=== PATIENT | female | born 1970 | race Caucasian/White ===

== ENCOUNTER 2017-07-16 07:14 | Day surgery (SDC) | payer OTHER ==
[~2017-07-16 07:14] MED LIST: Buffered Lidocaine 0.9% SYRIN* 5 ML/SYR SYRINGE INTRADERM ONE; Bupivacaine 0.5% SDV PF* 30 ML VIAL ONE; Famotidine IV* 10 MG/ML 2 ML (20 mg) IV ONE; Lidocaine 2% PF* 10 ML AMP ONE; Scopolamine 1.5 mg* PATCH TRANSDERM SCH
[2017-07-16] MEDS ORDERED: Scopolamine 1.5 mg* PATCH ONE (07:17)
[2017-07-16] MEDS ORDERED: ceFAZolin 2 GM PREMIX (*) 2 GM/50 ML BAG IVPB ONE (07:17)
[2017-07-16] MEDS ORDERED: Famotidine IV* 10 MG/ML 2 ML (20 mg) ONE (07:17)
[2017-07-16] MEDS ORDERED: Buffered Lidocaine 0.9% SYRIN* 5 ML/SYR SYRINGE ONE (07:36)
[2017-07-16] MEDS ORDERED: fentaNYL* 50 MCG/ML 2 ML VIAL (100 MCG VIAL) ONE ×2 (08:01→09:14)
[2017-07-16] MEDS ORDERED: Midazolam* 1 MG/ML 5 ML VIAL (5 MG) ONE (08:01)
[2017-07-16] MEDS ORDERED: Dexamethasone IV* 4 MG/ML 1 ML (4 MG) ONE (08:13)
[2017-07-16] MEDS ORDERED: Ondansetron INJ* 2 MG/ML VIAL ONE (08:13)
[2017-07-16] MEDS ORDERED: Propofol* 10 MG/ML 20 ML BTL IV PUSH ONE (08:13)
[2017-07-16] MEDS ORDERED: Ketorolac INJ* 30 MG/ML 1 ML VIAL ONE (08:13)
[2017-07-16] MEDS ORDERED: DiMENhydriNATE IV* 50 MG/ML VIAL ONE (08:13)
[2017-07-16] MEDS ORDERED: Lidocaine 2% PF * 5 ML VIAL ONE (08:13)
[2017-07-16] MEDS ORDERED: DiMENhydriNATE IV* 50 MG/ML VIAL IV PUSH PRN (08:27)
[2017-07-16] MEDS ORDERED: HYDROmorphone INJ* 1 MG/ML CARPUJECT SYRINGE IV PRN (08:27)
[2017-07-16] MEDS ORDERED: Acetaminophen TAB* 325 MG PO PRN (08:27)
[2017-07-16] MEDS ORDERED: oxyCODONE TAB* 5 MG TAB PO PRN (08:27)
[2017-07-16] MEDS ORDERED: oxyCODONE TAB* 5 MG TAB ONE (10:13)
[2017-07-16 10:48] VITALS: BP 112/77
--- NOTE | 2017-07-17 08:57 | OP ---
DATE OF OPERATION: 07/16/17 - [facility] DATE OF : 68 ATTENDING SURGEON: David Olson MD IRRIGATION EQUIPMENT MECHANIC: Radha Alvarez PA-C ANESTHESIOLOGIST: Joaquina Saldivar MD ANESTHESIA: General PRE-OP DIAGNOSIS: Loose dorsal lip stress fracture, left navicular. POST-OP DIAGNOSIS: Loose dorsal lip stress fracture, left navicular. OPERATIVE PROCEDURE: Debridement of left dorsal navicular. DESCRIPTION OF PROCEDURE: The patient was taken to the operating room where a longitudinal incision was made medial to the anterior tibialis tendon. We incised down full thickness to the dorsum of the navicular where a microsagittal saw was used to remove the dorsal lip of the navicular. This was sent to pathology. We then irrigated thoroughly and closed deep the sutures over the navicular with 2-0 Vicryl sutures, taking care to preserve both deep peroneal, superficial peroneal nerve branches, subcutaneous tissue with 2-0 Vicryl and interrupted nylon for the skin and a compression dressing and plaster splint applied. [id number]/[facility] #: [id number] MTDD
== END 2017-07-16 11:01 | disposition home or self-care (01) ==
LOC: OR 07:14
PROVIDERS: ATTEND Orthopaedic Surgery
DX: M84.375A Stress fracture, left foot, initial encounter for fracture (principal); M19.072 Primary osteoarthritis, left ankle and foot; Z87.891 Personal history of nicotine dependence
CPT/HCPCS: 88304; 88311; A9270-GY; J0690; J1100; J1240; J1885; J2001; J2250; J2405; J2704; J3010

== ENCOUNTER 2018-03-19 07:30 | Day surgery (SDC) | payer OTHER ==
--- NOTE | 2018-03-13 12:14 | HP ---
PREOPERATIVE HISTORY AND PHYSICAL: DATE OF SURGERY/ADMISSION: 03/19/18 [facility] ATTENDING SURGEON: Mariann Robledo MD * (DICTATED BY ADIN BILLINGS) PROCEDURE: Left ring finger excision mass, removed 3 masses left forearm. CHIEF COMPLAINT: Left ring finger and left forearm masses. HISTORY OF PRESENT ILLNESS: This is a 47-year-old female who complains of lumps in her left forearm and in her left ring finger. She states they had been present for several months or maybe even years. Sometimes they are very bothersome and sometimes they are not very bothersome. She does not recall any injury. She points to lumps in the forearm around the volar aspect in the subcutaneous tissue. On the ring finger, the lump is at her DIP joint just proximal to the finger nail. She does a lot of with her hands and that seems to aggravate it at times. She is interested in surgical excision of the masses. PAST MEDICAL HISTORY: GERD. PAST SURGICAL HISTORY: 1. Left ankle surgery. 2. Vein surgeries left leg x4. 3. [place] teeth extraction. 4. Left breast lumpectomy. 5. Benign skin lesion excision from left chest wall. CURRENT MEDICATIONS: 1. Ibuprofen 400 mg p.r.n. 2. Omeprazole 200 mg daily. ALLERGIES: TUBERCULIN TEST. FAMILY HISTORY: Heart disease, diabetes mellitus, COPD. SOCIAL HISTORY: The patient is employed at [employer]. She is a former smoker, she quit approximately 15 years ago, prior to that she had a 10-year history of smoking approximately three quarters of a pack per day. She denies recreational drug use and does not drink alcohol. REVIEW OF SYSTEMS: General: Negative for fevers, chills, or night sweats. No known anesthesia problems. No unexplained weight loss/gain. HEENT: Negative for headache, lightheadedness, syncopal episodes, or visual changes. Integumentary: Negative for abrasions, lesions, or open wounds. Cardiothoracic : Negative for hypertension, chest pain, palpitations, or edema. Respiratory: Negative for shortness of breath with exertion, chronic cough, wheezing. GI: Negative for nausea, vomiting, diarrhea, constipation, or GERD. : Negative for nocturia, urinary frequency, urgency, history of UTIs, or kidney problems. Musculoskeletal: Positive for current complaint. Neurological: Negative for paresthesias, numbness, history of seizure, stroke, or poor balance. Endocrine: Negative for diabetes and thyroid issues. Hematologic: Negative for easy bruising, anemia, bleeding disorders, and history of DVT. Infectious Disease: Negative for history of MRSA, hepatitis C, or HIV. PHYSICAL EXAMINATION GENERAL: A well-developed, well-nourished 47-year-old female in no acute distress. VITAL SIGNS: Height 5 feet 5 inches, weight 219 pounds. Blood pressure 138/76 , pulse rate 72. HEENT: Normocephalic, atraumatic. Pupils are equal, round, and reactive to light and accommodation. Extraocular movements are intact. NECK: Supple. No palpable lymph nodes. Throat is clear. PULMONARY: Lungs are clear to auscultation bilaterally. No wheezes, rales, or rhonchi. CARDIOVASCULAR: Regular rate and rhythm. S1, S2. No murmurs, rubs, or gallops. No edema. ABDOMEN: Positive bowel sounds. Soft, nontender. NEUROLOGICAL: Alert and oriented x3. Cranial nerves II through XII are intact. MUSCULOSKELETAL: On exam of her left hand, she has a small cystic mass at the extensor aspect of the DIP joint, it is tender to palpation. She has active flexion and extension of the joint with minimal pain. Skin is intact. Neurovascular function is intact. On exam of the left forearm on the volar aspect, she has 3 small less than a centimeter diameter masses, which are subcutaneous, they are minimally tender to palpation. They feel like a lipoma or a fibroma on palpation. 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 IMPRESSION: Mucous cyst of the left ring finger, 3 soft tissue masses in the forearm. PLAN: The patient is scheduled to undergo a left ring finger excision mass, remove 3 masses from left forearm on 03/19/[address] Robledo. She will return to the office 10 days postoperatively for followup and suture removal. A prescription for tramadol was e-scribed to the patient's pharmacy for postoperative pain management. ADIN BILLINGS [id number]/[facility] #: [id number] VALE
[~2018-03-19 07:30] MED LIST changes: -Bupivacaine 0.5% SDV PF* 30 ML VIAL ONE; -Famotidine IV* 10 MG/ML 2 ML (20 mg) IV ONE; -Lidocaine 2% PF* 10 ML AMP ONE; -Scopolamine 1.5 mg* PATCH TRANSDERM SCH
[2018-03-19] MEDS ORDERED: fentaNYL* 50 MCG/ML 2 ML VIAL (100 MCG VIAL) ONE (08:13)
[2018-03-19] MEDS ORDERED: Midazolam* 1 MG/ML 2 ML VIAL (2 MG) ONE (08:13)
[2018-03-19] MEDS ORDERED: Lidocaine 1% INJ* 10 MG/ML 30 ML SDV ONE (08:42)
[2018-03-19] MEDS ORDERED: Naloxone* 0.4 MG/ML 1 ML VIAL IV PRN (09:15)
[2018-03-19 10:01] VITALS: BP 113/71
--- NOTE | 2018-03-20 03:56 | OP ---
DATE OF OPERATION: 03/19/18 - [facility] DATE OF : 68 SURGEON: Mariann Robledo MD ROUTE AIDE: ADIN Farnsworth ANESTHESIA: Local MAC. PRE-OP DIAGNOSIS: Left ring finger mass and three masses in the left forearm. POST-OP DIAGNOSIS: Left ring finger mass and three masses in the left forearm. OPERATIVE PROCEDURE: Removal of three masses in the left forearm and removal of left ring finger mass. ESTIMATED BLOOD LOSS: Zero. TOURNIQUET TIME: About 20 minutes. INDICATIONS FOR PROCEDURE: Vanessa is a 47-year-old female with three painful masses in her left forearm and an additional painful mass on the dorsal aspect of the DIP joint of her left ring finger. She presents for removal of these four masses. DESCRIPTION OF PROCEDURE: The patient was brought to the operating room, was given a sedation anesthetic and a local infiltration of total of 20 cc of 1% plain lidocaine. The skin of her left hand and forearm was prepped and draped in the usual sterile fashion. The hand and forearm were exsanguinated and the tourniquet elevated to 250 mmHg. A longitudinal incision was made over each of the three palpable forearm masses and dissected bluntly through the subcutaneous tissue and removed what appeared to be lipomas. These were all sent for pathology. The wounds were irrigated and the skin edges were reapproximated with 4-0 nylon suture. Next, an H-shaped incision was made on the dorsal aspect of the ring finger DIP joint and the skin flaps were elevated up over the mass, which appeared to be a ganglion cyst emanating from the joint. The cyst was removed from over the extensor tendon and then removed with its stalk from the joint capsule. The joint capsule was opened sharply on either side of the extensor tendon and then the underlying osteophytes debrided with a rongeur. The wound was irrigated and the skin edges reapproximated with 4-0 nylon suture. The wounds were dressed with Xeroform, 4x4, Webril, and Arthur wrap. The patient tolerated the procedure well and was brought to the recovery room in good condition. [id number]/[facility] #: [id number] MTDD
== END 2018-03-19 09:55 | disposition home or self-care (01) ==
LOC: OREAST 07:30
PROVIDERS: ATTEND Orthopaedic Surgery
DX: D17.22 Benign lipomatous neoplasm of skin and subcutaneous tissue of left arm (principal); L90.5 Scar conditions and fibrosis of skin; K21.9 Gastro-esophageal reflux disease without esophagitis
CPT/HCPCS: 88304; 88305; J2250; J3010